=== PATIENT | male | born 1940 | race Caucasian/White ===

== ENCOUNTER 2024-01-14 14:09 | Emergency (ER) | payer OTHER, SELFPAY ==
[2024-01-14 14:11] VITALS: BP 157/103
--- NOTE | 2024-01-14 14:43 | ED.GENMED ---
History of Present Illness
General
Chief Complaint: Abdominal Symptoms
Source: patient
Exam Limitations: none
Time Seen by Provider: 01/14/24 14:26
Travel History
Have you had any contact with someone who has COVID-19?: No
Do you have any symptoms of coronavirus? Fever > 100 degrees, chills, cough, shortness of breath, sore throat, loss of taste or smell, muscle aches, or headache?: No
History of Present Illness
History of Present Illness:
83-year-old male with history of reflux presents complaining of worsening burning discomfort in his chest despite use of his omeprazole and adding Pepcid. He states he vomited this morning. He denied any blood in the vomit. He is a
wcq-znbhipn-wvsbxdnzq diabetic with a history of prostate cancer. He denies shortness of breath sweats or chills. No abdominal pain. The pain does not radiate to his back. Pain does not radiate to his arms. He states Pepto-Bismol does help but
only temporarily. His prior history of inguinal hernia repair. He denies any leg swelling. No fever. No other complaints at this time
Past History
Past History
ED Past Medical History: HTN, Hypercholesterolemia and NIDDM
ED Past Surgical History: Urological (Prosthetic sphincter) and Other (Hernia)
Social History
Tobacco: Former smoker
Alcohol: Occasional
Drug: None
Personal:
Living: with family
Phy Exam
Physical Exam
Physical Exam:
General: Well-appearing male no acute respiratory distress
HEENT: Normocephalic atraumatic
Lungs: Clear to auscultation bilaterally no wheezing
Abdomen is soft nontender nondistended no guarding rebound normal bowel sounds
Extremities: No cyanosis or edema
Skin: Warm no rash or lesions
Course
Orders/Labs/Results
Orders:
Orders
01/14/24 14:14
Electrocardiogram (*1) Urgent
Reason for Study: Abdominal Pain
EKG- Treatment ONCE
01/14/24 14:42
Famotidine [Pepcid] 20 mg IV NOW STA
01/14/24 14:47
Complete Blood Count/With Diff Urgent
Comprehensive Metabolic Panel Urgent
Lipase Urgent
Troponin I Urgent
01/14/24 15:41
CR Chest - 2 Views Urgent
Comment:
Reason For Exam: pain
01/14/24 16:46
Mag Hydrox/Al Hydrox/Simeth [Maalox] 30 ml Phenobarb/Hyoscy/Atropine/Scop [] 10 ml PO NOW
01/14/24 16:49
Mag Hydrox/Al Hydrox/Simeth [Maalox] 30 ml .ROUTE .STK-MED ONE
Phenobarb/Hyoscy/Atropine/Scop [] 10 ml .ROUTE .STK-MED ONE
Abnormal Lab Results
01/14/24
14:47
RBC 4.44 L 10^6/uL
(4.70-6.10)
Hct 37.4 L %
(39.0-52.0)
Absolute Neuts (auto) 6.9 H 10^3/uL
(1.4-6.5)
Absolute Lymphs (auto) 0.9 L 10^3/uL
(1.2-3.4)
Neutrophils % 82.4 H %
(42.2-75.2)
Lymphocytes % 10.9 L %
(20.5-51.1)
Sodium 131 L mmol/L
(135-145)
Chloride 94 L mmol/L
(98-107)
Carbon Dioxide 31 H mmol/L
(22-30)
Glucose 144 H mg/dl
(70-99)
01/14/24 14:47
01/14/24 14:47
Vital Signs
Initial and Last Documented VS:
Initial Vital Signs
Temp Pulse Resp BP Pulse Ox
98.3 F 109 18 157/103 95
01/14/24 14:11 01/14/24 14:11 01/14/24 14:11 01/14/24 14:11 01/14/24 14:11
Last Documented Vital Signs
Temp Pulse Resp BP Pulse Ox
98.3 F 88 17 177/89 96
01/14/24 14:11 01/14/24 15:45 01/14/24 15:45 01/14/24 16:23 01/14/24 16:30
MDM/Problems Addressed
Differential Diagnosis Includes:
Patient describes increased reflux symptoms. Is burning in his chest. Differential could include GERD versus cardiac disease versus pancreatitis.
EKG through triage was ordered and reviewed and demonstrates normal sinus rhythm without ischemic changes
Check labs including troponin and lipase.
*Critical Care Note
Total Time (30-74mins, 75-104mins- exclusive of procedures): Not Applicable
Update Note
Update Note:
Patient feeling better after treatment here including Pepcid and green grabber. Troponin is undetectable. Chest x-ray is clear EKG shows sinus rhythm. Do not suspect chest burning is cardiac do suspect reflux. Stable for discharge with GERD
ED Attending Note
-
Portions of this chart may have been created with voice recognition software.� Occasional wrong word or��sound alike� substitutions may have occurred due to the inherent limitations of voice recognition software.
Discharge Plan
Departure
Patient Disposition: Home (Routine Discharge)
Date of Disposition: 01/14/24
Time of Disposition: 17:17
Patient with high blood pressure during this ER visit?: No
Discharge Problem:
Chest pain due to GERD
Prescriptions:
No Action
levofloxacin 500 MG tablet
500 mg PO DAILY Qty: 6 0RF
Referrals:
Konstantin Holland DO [Family Provider] -
Parveen Hager MD [Active] -
Activity Restrictions/Additional Instructions:
Continue with Prilosec and Pepcid. Eat a bland diet. Please follow-up with GI doctor for further evaluation.
Interventions
Interventions:
*Risk Screen - Suicide Last Done: 01/14/24 14:15
*General Assessment Last Done: 01/14/24 14:38
*Neglect/Abuse Screening Last Done: 01/14/24 14:15
ED- Fall Risk Assessment Last Done: 01/14/24 14:34
*ED COVID-19 Vaccine History Last Done: 01/14/24 14:51
JJ-Pmbprw-Xwphbcanii Assessment Last Done: 01/14/24 14:34
[2024-01-14] MEDS: PEPCID 20 MG IV (14:49)
[2024-01-14 14:50] VITALS: BP 158/90
[2024-01-14 14:55] LABS: % Basophils 0.5 % (0-2); % Eosinophils 0.4 % (0-6); % Immature Granulocytes 0.2 % (0-0.5); % Lymphocytes 10.9 % (20.5-51.1); % Monocytes 5.6 % (1.7-9.3); % Neutrophils 82.4 % (42.2-75.2); Absolute Lymphocytes 0.9 10^3/uL (1.2-3.4); Absolute Monocytes 0.5 10^3/uL (0.1-0.6); Absolute Neutrophils 6.9 10^3/uL (1.4-6.5); Hematocrit 37.4 % (39.0-52.0); Hemoglobin 13.5 g/dL (13.0-18.0); Mean Corp Hgb Conc. 36.1 g/dL (33.0-37.0); Mean Corpuscular Hgb 30.4 pg (27.0-31.0); Mean Corpuscular Volume 84.2 fL (80.0-94.0); Mean Platelet Volume 9.1 fL (7.4-10.4); Nucleated Red Blood Cells % 0 % (-); Platelet Count 260 10^3/uL (130-400); Red Blood Cell Count 4.44 10^6/uL (4.70-6.10); Red Cell Dist. Width 13.6 % (11.5-14.5); White Blood Cell Count 8.3 10^3/uL (4.8-10.8)
[2024-01-14 15:00] VITALS: BP 153/93
[2024-01-14 15:05] LABS: ALT (SGPT) 48 U/L (0-50); AST (SGOT) 43 U/L (17-59); Albumin 3.9 g/dl (3.5-5.0); Alkaline Phosphatase 41 U/L (38-126); Blood Urea Nitrogen 16 mg/dl (9-20); Carbon Dioxide 31 mmol/L (22-30); Chloride 94 mmol/L (98-107); Glucose 144 mg/dl (70-99); Lipase 84 U/L (23-300); Potassium 3.8 mmol/L (3.5-5.1); Sodium 131 mmol/L (135-145); Total Protein 6.5 g/dl (6.3-8.2); eGFR > 60.00
[2024-01-14 15:17] LABS: Troponin I < 0.012 ng/ml
[2024-01-14 16:23] VITALS: BP 177/89
[2024-01-14] MEDS: MAALOX 40 PO (16:51)
[2024-01-14 17:00] VITALS: BP 144/90
== END 2024-01-14 17:30 | disposition home or self-care (01) ==
LOC: EMR 14:09
PROVIDERS: Physician Assistant; EMERGENCY PHYSICIAN Emergency Medicine; FAMILY PHYSICIAN Family Medicine
DX: K21.9 Gastro-esophageal reflux disease without esophagitis (principal); Z87.891 Personal history of nicotine dependence
CPT/HCPCS: 99285; 96374; 71046; 80053; 83690; 84484; 85025; 93005

== ENCOUNTER → 2025-02-25 09:51 | Outpatient (REF) | payer OTHER, SELFPAY | LOC: RAD 09:51 | PROVIDERS: ATTENDING PHYSICIAN Physician Assistant; FAMILY PHYSICIAN Family Medicine | DX: M79.89 Other specified soft tissue disorders (principal); C61 Malignant neoplasm of prostate; C77.2 Secondary and unspecified malignant neoplasm of intra-abdominal lymph nodes | CPT/HCPCS: 93970 ==

== ENCOUNTER 2025-08-14 13:37 | Emergency (ER) | payer OTHER, SELFPAY ==
[2025-08-14 13:48] VITALS: BP 178/95
[2025-08-14 14:03] LABS: Hematocrit 38.8 % (39.0-52.0); Hemoglobin 13.1 g/dL (13.0-18.0); Mean Corp Hgb Conc. 33.8 g/dL (33.0-37.0); Mean Corpuscular Volume 86.0 fL (80.0-94.0); Nucleated Red Blood Cells % 0 % (-); Platelet Count 241 10^3/uL (130-400); Red Cell Dist. Width 14.5 % (11.5-14.5)
[2025-08-14 14:19] LABS: ALT (SGPT) 19 U/L (0-50); AST (SGOT) 22 U/L (17-59); Albumin 3.9 g/dl (3.5-5.0); Alkaline Phosphatase 43 U/L (38-126); Blood Urea Nitrogen 15 mg/dl (9-20); Calcium 9.3 mg/dl (8.4-10.2); Carbon Dioxide 22 mmol/L (22-30); Chloride 100 mmol/L (98-107); Glucose 161 mg/dl (70-99); Potassium 4.3 mmol/L (3.5-5.1); Sodium 127 mmol/L (135-145); Total Protein 7.0 g/dl (6.3-8.2); eGFR > 60.00
[2025-08-14 14:29] LABS: Troponin I 0.019 ng/ml
--- NOTE | 2025-08-14 17:09 | ED.GENMED ---
History of Present Illness
General
Chief Complaint: Chest Pain
Source: patient
Exam Limitations: none
Time Seen by Provider: 08/14/25 16:57
History of Present Illness
History of Present Illness:
84-year-old male aqn-fgdjyph-evxggcqxs diabetic presents with onset of chest pain and 1/2-hour prior to arrival. He was sitting reading a book when the pain started. It he described as a pressure sensation. At the time my exam the pain is
completely resolved. He is actually requesting relief. He does see a calender supervisor through [facility]. No recent travel or surgery. No new leg swelling or calf pain. He is not anticoagulated no fever or cough. Companied by his daughter who he
lives with.
Past History
Past History
ED Past Medical History: HTN, Hypercholesterolemia and NIDDM
ED Past Surgical History: Urological (Prosthetic sphincter) and Other (Hernia)
Social History
Tobacco: Former smoker
Alcohol: Occasional
Drug: None
Personal:
Living: with family
Phy Exam
Physical Exam
Physical Exam:
General: Well-appearing male no acute respiratory distress
HEENT normal cephalic atraumatic
Heart: Regular rate and rhythm
Lungs: Clear no wheeze
Extremities: Mild edema bilateral lower extremities
Skin is warm no rash
Scores
Heart Score for Chest Pain Patients
STEMI patient?: No
History: Slightly or Non-Suspicious
ECG: Normal
Age: >/= 65 years
Risk Factors: 1 or 2 Risk Factors
Troponin: </= Normal Limit
Heart Score for Chest Pain Patients: 3
Heart Score Risk: 2.5% MACE over next 6 weeks
Course
Orders/Labs/Results
Orders:
Orders
08/14/25 13:42
EKG [Electrocardiogram (*1)] Urgent
Reason for Study: Chest Pain
EKG- Treatment ONCE
08/14/25 13:54
Complete Blood Count/With Diff Urgent
Comprehensive Metabolic Panel Urgent
Troponin I Urgent
08/14/25 17:11
CR Chest - 2 Views Urgent
Comment:
Reason For Exam: chest pain
08/14/25 17:13
Troponin I Urgent
Abnormal Lab Results
08/14/25
13:54
RBC 4.51 L 10^6/uL
(4.70-6.10)
Hct 38.8 L %
(39.0-52.0)
Absolute Lymphs (auto) 0.8 L 10^3/uL
(1.2-3.4)
Immature Gran % 0.6 H %
(0-0.5)
Neutrophils % 80.7 H %
(42.2-75.2)
Lymphocytes % 10.7 L %
(20.5-51.1)
Sodium 127 L mmol/L
(135-145)
Glucose 161 H mg/dl
(70-99)
08/14/25 13:54
08/14/25 13:54
Vital Signs
Initial and Last Documented VS:
Initial Vital Signs
Temp Pulse Resp BP Pulse Ox
98.6 F 82 18 178/95 95
08/14/25 13:48 08/14/25 13:48 08/14/25 13:48 08/14/25 13:48 08/14/25 13:48
Last Documented Vital Signs
Temp Pulse Resp BP Pulse Ox
98.6 F 82 20 136/81 96
08/14/25 17:16 08/14/25 17:16 08/14/25 17:16 08/14/25 17:16 08/14/25 17:16
MDM/Problems Addressed
Differential Diagnosis Includes:
Chest pain now completely resolved. Consider ACS versus GERD versus musculoskeletal chest pain. Unlikely to be PE or dissection given resolution of symptoms. EKG reviewed which showed sinus rhythm without ischemic changes. Initial troponin is
within normal limits at 0.019. Repeat troponin pending.
*Pulse Oximetry
SaO2: 95
Oxygen Mode of Delivery: Room air
Patient hypoxic: no
*Critical Care Note
Total Time (30-74mins, 75-104mins- exclusive of procedures): Not Applicable
Update Note
Update Note:
Repeat troponin also normal patient remains chest pain-free chest x-ray clear. He wants to go home and follow-up with his calender supervisor and I think is reasonable. Stable for discharge
ED Attending Note
-
Portions of this chart may have been created with voice recognition software.� Occasional wrong word or��sound alike� substitutions may have occurred due to the inherent limitations of voice recognition software.
Discharge Plan
Departure
Patient Disposition: Home (Routine Discharge)
Date of Disposition: 08/14/25
Time of Disposition: 18:26
Patient with high blood pressure during this ER visit?: No
Discharge Problem:
Chest pain
Instructions: Chest Pain NON-[facility] Of [employer] Programs Follow Up
Prescriptions:
No Action
No Current Medications
0
Referrals:
Doug Barraza MD [Family Provider, Family Practice]
Activity Restrictions/Additional Instructions:
Please return here for worsening symptoms otherwise follow-up with your calender supervisor
Interventions
Interventions:
*Risk Screen - Suicide Last Done: 08/14/25 13:49
*General Assessment Last Done: 08/14/25 17:16
*Neglect/Abuse Screening Last Done: 08/14/25 17:16
*ED- Fall Risk Assessment Last Done: 08/14/25 17:16
*ED COVID-19 Vaccine History Last Done: 08/14/25 17:16
*ED Influenza Vaccine History Last Done: 08/14/25 17:16
ED- Cardiac Assessment Last Done: 08/14/25 17:16
Discharge Date and Time
Print Language: [place] CITIZ[place]
[2025-08-14 17:16] VITALS: BP 136/81; BMI 28.9
[2025-08-14 17:43] LABS: Troponin I 0.019 ng/ml
== END 2025-08-14 18:41 | disposition home or self-care (01) ==
LOC: EMR 13:37
PROVIDERS: Physician Assistant; EMERGENCY PHYSICIAN Emergency Medicine; FAMILY PHYSICIAN Family Medicine
DX: R07.89 Other chest pain (principal); I10 Essential (primary) hypertension; E78.00 Pure hypercholesterolemia, unspecified; E11.9 Type 2 diabetes mellitus without complications; Z87.891 Personal history of nicotine dependence
CPT/HCPCS: 99283; 71046; 80053; 84484; 85025; 93005